=== PATIENT | male | born 1965 | race Caucasian/White ===

== ENCOUNTER 2023-07-02 12:30 | Emergency (ER) | payer OTHER ==
[~2023-07-02] VITALS: Ht 180.3 cm; Wt 77.1 kg
[2023-07-02] MEDS ORDERED: Ipratropium Bromide INH 0.02% 0.5 mg/2.5ML Vial INH SCH (13:15)
[2023-07-02] MEDS ORDERED: Albuterol 2.5 MG/3 ML VIAL INH SCH ×2 (13:15→15:10)
[2023-07-02] MEDS ORDERED: MethylPREDNISolone Sod Succ 125 MG Vial IV ONE (13:15)
[2023-07-02 13:20] LABS: BASOPHILS ABSOLUTE AUTO 0.04 K/mm3 (0.00-0.23); BASOPHILS PERCENT AUTO 0 % (0-2); EOSINOPHILS ABSOLUTE AUTO 0.05 K/mm3 (0.00-0.68); EOSINOPHILS PERCENT AUTO 1 % (0-6); Hematocrit 42.7 % (37.0-53.0); Hemoglobin 14.3 g/dL (13.5-17.5); IMMATURE GRAN ABSOLUTE AUTO 0.05 K/mm3 (0.00-0.10); IMMATURE GRAN PERCENT AUTO 1 % (0-1); LYMPHOCYTES ABSOLUTE AUTO 1.88 K/mm3 (0.84-5.20); LYMPHOCYTES PERCENT AUTO 21 % (21-46); MONOCYTES ABSOLUTE AUTO 0.62 K/mm3 (0.16-1.47); MONOCYTES PERCENT AUTO 7 % (4-13); Mean Corpuscular HGB 30.4 pg (26.0-34.0); Mean Corpuscular HGB Conc 33.5 g/dL (31.5-36.5); Mean Corpuscular Volume 91 fL (80-100); Mean Platelet Volume 8.8 fL (9.1-12.4); NEUTROPHILS ABSOLUTE AUTO 6.38 K/mm3 (1.96-9.15); NEUTROPHILS PERCENT AUTO 71 % (41-73); Platelet Count 279 K/mm3 (150-400); RDW Coefficient Variation 11.9 % (11.7-14.2); RDW Standard Deviation 39.8 fL (35.1-46.3); White Blood Cell Count 9.02 K/mm3 (4.00-11.30)
[2023-07-02 13:38] LABS: Albumin, Blood 3.1 g/dL (3.4-5.0); Albumin/Globulin Ratio 0.6 (0.8-1.8); Bilirubin, Total 0.3 mg/dL (0.1-1.0); Bun/Creatinine Ratio 10.4 (12.0-20.0); Calcium, Blood 8.9 mg/dL (8.5-10.1); Creatinine, Blood 0.58 mg/dL (0.60-1.20); Potassium, Blood 4.4 mmol/L (3.5-5.5); Total Protein, Blood 8.1 g/dL (6.4-8.2)
[2023-07-02 13:46] LABS: Influenza A, PCR NEGATIVE (NEGATIVE); Influenza B, PCR NEGATIVE (NEGATIVE); Resp Syncytial Virus, PCR NEGATIVE (NEGATIVE); SARS-Cov-2 (COVID-19) PCR, MMC NEGATIVE (NEGATIVE)
[2023-07-02] MEDS ORDERED: RX Prepack Albuterol 1 PREPACK/6.7 GM INH UD ONE (15:10)
[2023-07-02] MEDS ORDERED: Azithromycin 250 MG Tab PO ONE (15:10)
[2023-07-02] MEDS ORDERED: LORazepam 2 MG/ML 1ML Injection IV ONE (15:10)
[2023-07-02] MEDS ORDERED: AZIT250 PO (16:22)
[2023-07-02] MEDS ORDERED: Prednisone20 MG PO (16:22)
== END 2023-07-02 17:14 | disposition home or self-care (01) ==
LOC: ER 12:30
PROVIDERS: Student in an Organized Health Care Education/Training Program
DX: J18.9 Pneumonia, unspecified organism (principal); J44.9 Chronic obstructive pulmonary disease, unspecified; F17.200 Nicotine dependence, unspecified, uncomplicated
CPT/HCPCS: 0241U; 71046; 80053; 83880; 84484; 85025; 93005; 93010; 94640; 94644; 94664; 96374; 99285-25; A9270; J2930

== ENCOUNTER 2024-04-23 13:14 | Inpatient (IN) | payer OTHER ==
[~2024-04-23] VITALS: Ht 177.8 cm; Wt 64.5 kg
[2024-04-23] VITALS (12 sets, daily range): BP systolic 76–101; BP diastolic 55–75
[~2024-04-23 13:14] MED LIST: AZIT250 PO; Prednisone20 MG PO
[2024-04-23] MEDS ORDERED: Folic Acid 1 MG TAB PO ONE (13:30)
[2024-04-23] MEDS ORDERED: Thiamine HCl 100 MG Tab PO ONE (13:30)
[2024-04-23 13:34] LABS: BASOPHILS ABSOLUTE AUTO 0.04 K/mm3 (0.00-0.23); BASOPHILS PERCENT AUTO 0 % (0-2); EOSINOPHILS ABSOLUTE AUTO 0.02 K/mm3 (0.00-0.68); EOSINOPHILS PERCENT AUTO 0 % (0-6); Hematocrit 32.8 % (37.0-53.0); Hemoglobin 11.8 g/dL (13.5-17.5); IMMATURE GRAN ABSOLUTE AUTO 0.45 K/mm3 (0.00-0.10); IMMATURE GRAN PERCENT AUTO 4 % (0-1); LYMPHOCYTES ABSOLUTE AUTO 1.04 K/mm3 (0.84-5.20); LYMPHOCYTES PERCENT AUTO 8 % (21-46); MONOCYTES ABSOLUTE AUTO 1.14 K/mm3 (0.16-1.47); MONOCYTES PERCENT AUTO 9 % (4-13); Mean Corpuscular HGB 32.3 pg (26.0-34.0); Mean Corpuscular Volume 90 fL (80-100); Mean Platelet Volume 9.7 fL (9.1-12.4); NEUTROPHILS PERCENT AUTO 79 % (41-73); NRBC ABSOLUTE 0.02 K/mm3 (0.00-0.02); NRBC Auto 0.2 /100 WBC (0.0-0.2); Platelet Count 192 K/mm3 (150-400); RDW Coefficient Variation 12.3 % (11.7-14.2); RDW Standard Deviation 39.3 fL (35.1-46.3); Red Blood Cell Count 3.65 M/mm3 (4.30-5.90); White Blood Cell Count 12.69 K/mm3 (4.00-11.30)
[2024-04-23] MEDS ORDERED: ESCI10 PO (13:38)
[2024-04-23] MEDS ORDERED: Prinivil10 MG PO (13:38)
[2024-04-23] MEDS ORDERED: HYDHCL25 PO (13:38)
[2024-04-23] MEDS ORDERED: STIOLTO RESPIMAT4 G1 INH (13:39)
[2024-04-23] MEDS ORDERED: PROAIR DIGIHAL90 MCG INH (13:40)
[2024-04-23] MEDS ORDERED: MIRT15ST PO (13:41)
[2024-04-23] MEDS ORDERED: Naltrexone HCl50 MG PO (13:41)
[2024-04-23 14:15] LABS: Albumin, Blood 2.2 g/dL (3.4-5.0); Albumin/Globulin Ratio 0.5 (0.8-1.8); Bilirubin, Total 1.1 mg/dL (0.1-1.0); Bun/Creatinine Ratio 18.6 (12.0-20.0); Calcium, Blood 8.6 mg/dL (8.5-10.1); Creatinine, Blood 0.64 mg/dL (0.60-1.20); Globulin, Blood 4.8 g/dL (2.2-4.0); Potassium, Blood 3.2 mmol/L (3.5-5.5)
[2024-04-23] MEDS ORDERED: NS 1,000 ML IV SCH (14:30)
[2024-04-23] MEDS ORDERED: Ampicillin Sod/Sulbactam Sod 3 GM in NS 100 ML IV ONE (14:35)
[2024-04-23] MEDS ORDERED: Azithromycin 500 MG in NS 250 ML IV ONE (14:35)
[2024-04-23] MEDS ORDERED: Ondansetron HCl 2 MG / ML 2ML Vial IV ONE (14:45)
[2024-04-23] MEDS ORDERED: LORazepam 2 MG/ML 1ML Injection IV ONE (15:35)
[2024-04-23] MEDS ORDERED: Lactated Ringer's 1,000 ML IV ONE ×2 (16:14→16:20)
[2024-04-23] MEDS ORDERED: LORazepam 2 MG/ML 1ML Injection IV PRN ×2 (16:45→16:50)
[2024-04-23] MEDS ORDERED: ChlordiazePOXIDE 25 MG Cap PO PRN ×2 (16:45→16:50)
[2024-04-23] MEDS ORDERED: FLU VACC TS2024-25(6MOS UP)/PF 45 MCG/0.5 ML SYRINGE IM SCH (16:45)
[2024-04-23] MEDS ORDERED: Potassium Chl 20MEQ/Water100ML 100 ML IV SCH (16:50)
[2024-04-23] MEDS ORDERED: Hydrocortisone Sod Succinate 250 MG Vial IV SCH (17:00)
[2024-04-23] MEDS ORDERED: Folic Acid 1 MG in NS 50 ML IV SCH (17:00)
[2024-04-23] MEDS ORDERED: Hydrocortisone Sod Succinate 100 MG Vial IV SCH (17:02)
[2024-04-23] MEDS ORDERED: Thiamine HCl 100 MG in NS 50 ML IV SCH (18:00)
[2024-04-23] MEDS ORDERED: NS 250 ML IV PRN (18:10)
[2024-04-23 19:07] LABS: Base Excess Venous 3.6 mmol/L; Bicarbonate Venous 26.7 mmol/L (24.0-30.0); pH Blood Venous 7.42 (7.34-7.37)
[2024-04-23 19:14] LABS: BASOPHILS ABSOLUTE AUTO 0.02 K/mm3 (0.00-0.23); BASOPHILS PERCENT AUTO 0 % (0-2); EOSINOPHILS ABSOLUTE AUTO 0.01 K/mm3 (0.00-0.68); EOSINOPHILS PERCENT AUTO 0 % (0-6); Hematocrit 30.2 % (37.0-53.0); Hemoglobin 10.7 g/dL (13.5-17.5); IMMATURE GRAN ABSOLUTE AUTO 0.19 K/mm3 (0.00-0.10); IMMATURE GRAN PERCENT AUTO 3 % (0-1); LYMPHOCYTES PERCENT AUTO 16 % (21-46); MONOCYTES ABSOLUTE AUTO 0.66 K/mm3 (0.16-1.47); MONOCYTES PERCENT AUTO 9 % (4-13); Mean Corpuscular HGB 32.2 pg (26.0-34.0); Mean Corpuscular HGB Conc 35.4 g/dL (31.5-36.5); Mean Corpuscular Volume 91 fL (80-100); Mean Platelet Volume 9.1 fL (9.1-12.4); NEUTROPHILS ABSOLUTE AUTO 5.49 K/mm3 (1.96-9.15); NEUTROPHILS PERCENT AUTO 73 % (41-73); Platelet Count 154 K/mm3 (150-400); RDW Coefficient Variation 12.3 % (11.7-14.2); RDW Standard Deviation 40.2 fL (35.1-46.3); Red Blood Cell Count 3.32 M/mm3 (4.30-5.90); White Blood Cell Count 7.57 K/mm3 (4.00-11.30)
[2024-04-23 19:31] LABS: International Normalized Ratio 1.02; Prothrombin Time Results 10.9 Sec (9.7-11.5)
[2024-04-23 19:45] LABS: Free Thyroxine 1.01 ng/dL (0.70-1.60); Magnesium, Blood 1.9 mg/dL (1.6-2.4)
[2024-04-23 19:48] LABS: Albumin, Blood 1.9 g/dL (3.4-5.0); Anion Gap 14 mmol/L (3-11); Blood Urea Nitrogen 8 mg/dL (8-24); CO2, Blood 28 mmol/L (21-32); Calcium, Blood 8.1 mg/dL (8.5-10.1); Chloride, Blood 87 mmol/L (98-108); Glomerular Filtration Rate 119 (60-); Glucose, Blood 76 mg/dL (70-99); Phosphorus, Blood 2.4 mg/dL (2.5-4.9); Potassium, Blood 2.6 mmol/L (3.5-5.5); Sodium, Blood 126 mmol/L (136-145)
[2024-04-23] MEDS ORDERED: Ampicillin Sod/Sulbactam Sod 3 GM in NS 100 ML IV SCH (20:00)
[2024-04-23 21:51] LABS: Osmolality, Serum 264 mos/KG (275-300)
--- NOTE | 2024-04-23 23:21 | NUR ---
WOUND. PT HAS R HIP OPEN WOUND. CIRCULAR, PINK BASE, SMALL AMOUNT OF GRANULATION, NO ODOR. CAME IN WITH BANDAID OVER THE SITE. CLEANSED WITH NORMAL SALINE AND COVERED WITH POLYMEM CLOTH STRIP AND TEGADERM FOR STABILITY. PRESENT ON ADMISSION, PHOTOS TAKEN. PT HAS PURPLE/MAROON BRUISING OVER ENTIRE BACK. SOFT TO TOUCH, NO PAIN WITH PALPATION, FLAT. SKIN WARM C/D/I.
[2024-04-24] VITALS (33 sets, daily range): BP systolic 67–129; BP diastolic 51–94
[2024-04-24] MEDS ORDERED: Potassium Chl 20MEQ/Water100ML 100 ML IV SCH (03:00)
[2024-04-24 03:36] LABS: BASOPHILS ABSOLUTE AUTO 0.01 K/mm3 (0.00-0.23); BASOPHILS PERCENT AUTO 0 % (0-2); EOSINOPHILS PERCENT AUTO 0 % (0-6); Hematocrit 27.1 % (37.0-53.0); Hemoglobin 9.5 g/dL (13.5-17.5); IMMATURE GRAN ABSOLUTE AUTO 0.16 K/mm3 (0.00-0.10); IMMATURE GRAN PERCENT AUTO 3 % (0-1); LYMPHOCYTES ABSOLUTE AUTO 0.52 K/mm3 (0.84-5.20); LYMPHOCYTES PERCENT AUTO 9 % (21-46); MONOCYTES ABSOLUTE AUTO 0.42 K/mm3 (0.16-1.47); MONOCYTES PERCENT AUTO 7 % (4-13); Mean Corpuscular HGB 32.1 pg (26.0-34.0); Mean Corpuscular HGB Conc 35.1 g/dL (31.5-36.5); Mean Corpuscular Volume 92 fL (80-100); Mean Platelet Volume 9.1 fL (9.1-12.4); NEUTROPHILS ABSOLUTE AUTO 4.77 K/mm3 (1.96-9.15); NEUTROPHILS PERCENT AUTO 81 % (41-73); Platelet Count 147 K/mm3 (150-400); RDW Coefficient Variation 12.3 % (11.7-14.2); RDW Standard Deviation 40.2 fL (35.1-46.3); Red Blood Cell Count 2.96 M/mm3 (4.30-5.90); White Blood Cell Count 5.88 K/mm3 (4.00-11.30)
[2024-04-24 03:55] LABS: Albumin, Blood 1.7 g/dL (3.4-5.0); Albumin/Globulin Ratio 0.5 (0.8-1.8); Bilirubin, Total 0.7 mg/dL (0.1-1.0); Bun/Creatinine Ratio 15.2 (12.0-20.0); Calcium, Blood 8.1 mg/dL (8.5-10.1); Creatinine, Blood 0.46 mg/dL (0.60-1.20); Globulin, Blood 3.6 g/dL (2.2-4.0); Potassium, Blood 3.1 mmol/L (3.5-5.5); Total Protein, Blood 5.3 g/dL (6.4-8.2)
[2024-04-24] MEDS ORDERED: Enoxaparin 40 MG/0.4 ML SYR SC SCH (09:00)
[2024-04-24] MEDS ORDERED: Azithromycin 500 MG in NS 250 ML IV SCH (09:00)
[2024-04-24] MEDS ORDERED: Thiamine HCl 100 MG in NS 50 ML IV SCH (09:00)
[2024-04-24] MEDS ORDERED: Nicotine 21 MG PATCH TOP SCH (09:00)
[2024-04-24] MEDS ORDERED: Folic Acid 1 MG in NS 50 ML IV SCH (09:00)
--- NOTE | 2024-04-24 10:55 | NUR ---
PT IS ALERT AND ORIENTED, ANSWERS ALL THE QUESTIONS. PT STATES HE IS INDEPENDENT AT HOME, HE IS VERY WEAK, HE HAD LARGE AMOUNT OF FLAKY DIRTY CONTENTS BETWEEN HIS TOES, HAS BRUISE OVER LEFT FLANK, BILATERAL HIPS ABOVE COCCYX, SKIN TEAR OVER BONY SPINE. SHOULDERS TENDER TO TOUCH, CRIES OUT IN PAIN WITH ANY MOVEMENT OF EXTREMITIES OR TOUCH. RIGHT HIP WITH DIVOT TO THE AREA JUST OVER THE BONY PROMINENCE. PT STATES IT IS HEALING. ASKED HOW HE IS MANAGING AT HOME ALONE, HE REPLIES, "HOW DO YOU THINK?". FAMILY IN THE ROOM. SISTER ANSWERS ALL THE QUESTIONS, POLITELY ASKED TO NOT ANSWER QUESTIONS DIRECTED AT THE PATIENT, WE NEED TO ASSESS HIS MENTATION AND COGNITIVE FUNCTION.
--- NOTE | 2024-04-24 15:52 | NUR ---
Pt. is sitting up in a chair and welcomes my visit. Pt. is pleasant but responds slowly to questions. Facilitate a life review and listen with interest and empathy. Pt. displayed some evidence of impairment as he struggled to remember and verbalize some words and thoughts. Prayed with the Pt. Pt. verbalized graitiude for the spiritual care visit and welcomed this document reviewer to return.
--- NOTE | 2024-04-24 16:18 | NUR ---
REPORT GIVEN TO JOANN Mcdaniel RN FOR ROOM 340. PT TAKEN TO ROOM BY WHEELCHAIR.
[2024-04-24] MEDS ORDERED: LORazepam 1 MG Tab PO PRN (16:50)
[2024-04-24] MEDS ORDERED: Benzonatate 100 MG Cap PO PRN (22:00)
[2024-04-24] MEDS ORDERED: Acetaminophen 325 MG TABLET PO PRN (22:00)
--- NOTE | 2024-04-24 22:22 | NUR ---
NEW T-ORDERS RECEIVED FROM THE ON-CALL HOSPITALIST LION: - TYLENOL 650MG PO Q6PRN - TESSALON PEARLS 100MG PO Q6HRS PRN. ENTERED TO [facility], SEE EMAR. NO ADDITIONAL NEW ORDERS AT THIS TIME.
[2024-04-25 03:13] VITALS: BP 124/92
--- NOTE | 2024-04-25 03:26 | NUR ---
SHIFT SUMMARY PT IS A&O X2-3, SELF, PERSON, AND PLACE. SLOW RESPONSES, SLURRED SPEECH. NO SIDED FACIAL DROOP NOTED. UPPER AND LOWER EXTREMITIES WEAK BILATERALLY. PT IS 2-PERSON ASSIST. STAYED IN BED AND REPOSITIONED Q2HRS. PT IS MOSTLY COOPERATIVE WITH CARE. CIWA SCORES 4&6 DURING THIS SHIFT. PO 1MG PRN ATIVAN ADMINISTERED FOR ANXIETY AT HS. PT HAS MALE PUREWICK, PULLED IT OFF, UNABLE TO VOID FROM 1900-030. BLADDER SCAN 467MLS. ATTENDS IN PLACE. PT C/O COUGH, LUNGS DIMINISHED UPPER LOBES, FINE CRACKLES LL'S PER AUSCULTATION. HX OF PNEUMONIA 2WKS AGO. 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 TESSALON PEARLS PRN FOR PRODUCTIVE OCCASIONAL COUGH, AND TYLENOL PRN PO ADMINISTERED AT HS. PT C/O 10/10 BODY ACHES D/T HX OF MULTIPLE FALLS RECENTLY. PT'S LE'S AND UE'S BRUISED T/O. NO ACUTE EVENTS DURING THIS SHIFT. BED AT THE LOWEST POSITION, CALL LIGHT W/I REACH. WILL RE-SCAN BLADDER BEFORE DAY SHIFT, AND WILL CONTACT THE PROVIDER FOR STRAIGHT CATH IF NOT VOIDING BEFORE 0600.
[2024-04-25 05:33] LABS: BASOPHILS ABSOLUTE AUTO 0.01 K/mm3 (0.00-0.23); BASOPHILS PERCENT AUTO 0 % (0-2); EOSINOPHILS PERCENT AUTO 0 % (0-6); Hematocrit 29.2 % (37.0-53.0); Hemoglobin 9.7 g/dL (13.5-17.5); IMMATURE GRAN ABSOLUTE AUTO 0.24 K/mm3 (0.00-0.10); IMMATURE GRAN PERCENT AUTO 3 % (0-1); LYMPHOCYTES ABSOLUTE AUTO 1.17 K/mm3 (0.84-5.20); LYMPHOCYTES PERCENT AUTO 15 % (21-46); MONOCYTES ABSOLUTE AUTO 0.72 K/mm3 (0.16-1.47); MONOCYTES PERCENT AUTO 9 % (4-13); Mean Corpuscular HGB 31.5 pg (26.0-34.0); Mean Corpuscular HGB Conc 33.2 g/dL (31.5-36.5); Mean Corpuscular Volume 95 fL (80-100); Mean Platelet Volume 9.2 fL (9.1-12.4); NEUTROPHILS ABSOLUTE AUTO 5.91 K/mm3 (1.96-9.15); NEUTROPHILS PERCENT AUTO 74 % (41-73); NRBC ABSOLUTE 0.02 K/mm3 (0.00-0.02); NRBC Auto 0.2 /100 WBC (0.0-0.2); Platelet Count 173 K/mm3 (150-400); RDW Coefficient Variation 12.6 % (11.7-14.2); RDW Standard Deviation 43.1 fL (35.1-46.3); Red Blood Cell Count 3.08 M/mm3 (4.30-5.90); White Blood Cell Count 8.05 K/mm3 (4.00-11.30)
[2024-04-25 06:06] LABS: Albumin/Globulin Ratio 0.5 (0.8-1.8); Bilirubin, Total 0.6 mg/dL (0.1-1.0); Bun/Creatinine Ratio 12.2 (12.0-20.0); Calcium, Blood 8.7 mg/dL (8.5-10.1); Creatinine, Blood 0.41 mg/dL (0.60-1.20); Globulin, Blood 3.7 g/dL (2.2-4.0); Potassium, Blood 2.8 mmol/L (3.5-5.5); Total Protein, Blood 5.7 g/dL (6.4-8.2)
[2024-04-25 08:00] VITALS: BP 107/79
[2024-04-25] MEDS ORDERED: Potassium Chl 20MEQ/Water100ML 100 ML IV SCH (09:00)
[2024-04-25 15:42] VITALS: BP 121/85
[2024-04-25] MEDS ORDERED: Potassium Chloride 20 MEQ/15 ML UDC PO ONE (16:40)
[2024-04-25] MEDS ORDERED: Pantoprazole Sodium 40 MG Tab PO SCH (19:00)
--- NOTE | 2024-04-25 19:10 | NUR ---
SHIFT SUMMARY PATIENT A/OX3, ABLE TO MAKE NEEDS KNOWN. CONFUSED INTERMITTENTLY, BASELINE PER FAMILY. SISTER AT BEDSIDE MOST OF SHIFT TODAY. 1 PERSON ASSIST, REFUSED PHYSICAL AND OCCUPATION THERAPY TODAY BUT IS ABLE TO TRANSFER TO RECLINER AND BEDSIDE COMMODE WITH NURSE ASSIST. PIV TO R AC REMOVED DUE TO LEAKING. PATIENT COMPLAINING OF LEFT WRIST PAIN, TYLENOL GIVEN PER JUL. PATIENT ALSO REQUESTED MEDS FOR HEART BURN THIS AFTERNOON, MD NOTIFED AND PRILOSEC ADMINISTERED. HIGHEST CIWA SCORE TODAY 6, ATIVAN ADMINISTERED PER MAR THIS AFTERNOON. PATIENT CONTINUES WITH WEAK PRODUCTIVE COUGH WIHT BROWN SPUTUM. NO OTHER CONCERNS AT THIS TIME.
[2024-04-25 20:12] VITALS: BP 146/108
[2024-04-25] MEDS ORDERED: Calcium Carbonate 500 MG Tab Chew PO PRN (20:40)
[2024-04-26 02:55] VITALS: BP 133/81
--- NOTE | 2024-04-26 04:25 | NUR ---
SHIFT SUMMARY PT ALERT ORIENTED X 3 WITH FORGETFULNESS. HE URINATED 300 IN THE URINAL AND STILL HAD 300 ON THE BLADDER SCAN. C/O INDIGESTION MEDICATED WITH TUMS WITH GOOD RELIEF. NO SIGNS OF WITHDRAWAL. HAS A OPEN AREA TO HIS RT HIP I CHANGED THE DRESSING TO THE AREA. REMAINS WITH RT HAND WEAKNESS AND RT SIDED FACIAL DROOP. HE HAD A INCREASED BP AT START OF THE SHIFT AT 146/108 BUT BETTER AT THE END. REMAINS ON RA. CONTINUES ON UNASYN Q6HR AND ZITHROMAX QDAY FOR PNEUMONIA. REMAINS WITH A PRODUCTIVE COUGH WITH THICK WHITE SPUTUM. RESTING IN BED AT THIS TIME WITH CALL LIGHT IN REACH
[2024-04-26 06:35] LABS: Anion Gap 10 mmol/L (3-11); Blood Urea Nitrogen 5 mg/dL (8-24); Bun/Creatinine Ratio 11.5 (12.0-20.0); CO2, Blood 30 mmol/L (21-32); Calcium, Blood 8.8 mg/dL (8.5-10.1); Chloride, Blood 99 mmol/L (98-108); Creatinine, Blood 0.44 mg/dL (0.60-1.20); Ferritin, Serum 748 ng/mL (26-388); Glomerular Filtration Rate 124 (60-); Glucose, Blood 90 mg/dL (70-99); Iron Serum 42 ug/dL (65-175); Magnesium, Blood 1.9 mg/dL (1.6-2.4); Percent Saturation 27.8 % (20.0-50.0); Phosphorus, Blood 1.3 mg/dL (2.5-4.9); Potassium, Blood 2.8 mmol/L (3.5-5.5); Sodium, Blood 136 mmol/L (136-145); Total Iron Binding Capacity 151 ug/dL (250-450)
[2024-04-26 07:23] VITALS: BP 133/100
[2024-04-26] MEDS ORDERED: Folic Acid 1 MG TAB PO SCH (09:00)
[2024-04-26] MEDS ORDERED: Thiamine HCl 100 MG Tab PO SCH (09:00)
[2024-04-26] MEDS ORDERED: Azithromycin 250 MG Tab PO SCH (09:00)
[2024-04-26] MEDS ORDERED: Potassium Phosphate Dibasic 30 MM in Dextrose 5% 500 ML IV STA (09:09)
[2024-04-26] MEDS ORDERED: Ipratropium/Albuterol SulF 2.5-0.5MG/3 ML Amp INH SCH (09:15)
[2024-04-26] MEDS ORDERED: Albuterol HFA200 ACT/6.7 GM INH INH PRN (09:15)
[2024-04-26] MEDS ORDERED: Potassium Chloride 20 MEQ TabCR PO ONE (10:00)
[2024-04-26] MEDS ORDERED: Lisinopril 10 MG Tab PO SCH (12:00)
[2024-04-26 12:10] VITALS: BP 118/81
[2024-04-26] MEDS ORDERED: Lactobacil 2-S.Thermo-Bifido 1 1 Cap PO SCH (18:00)
--- NOTE | 2024-04-26 18:41 | NUR ---
SHIFT SUMMARY: PT IS A/O X 3, ONE ASSIST TO BSC WITH GB/FWW. PT HAS BEEN WITHDRAWN TODAY. SLOW TO RESPOND. VERY POOR APPETITE. HAS HAD 5 DARK GREEN JELLY LIKE BM'S. HE HAS BEEN CONTINENT/INCONTINENT THROUGHOUT THE DAY. PT DENIES PAIN THROUGH THE DAY. DECLINED PT/OT STATING HE DID NOT SLEEP WELL LAST NIGHT AND HE IS TOO TIRED. PT COUGHING UP WHITE PHLEGM. DENIES NAUSEA. FAMILY PRESENT THROUGHOUT THE DAY. CARE MANAGEMENT WORKING ON PLACEMENT OR CAREGIVING PLAN IN THE HOME. PT AWARE HE HAS ORDER FOR BARRIUM SWALLOW EVAL.
[2024-04-26 19:23] VITALS: BP 119/87
[2024-04-26] MEDS ORDERED: Banana Flakes/Tos 1 EA Powder Pack PO SCH (20:00)
[2024-04-26] MEDS ORDERED: Mirtazapine 15 MG SoluTab PO SCH (21:00)
[2024-04-26] MEDS ORDERED: Amoxicillin/Clavulanate K 875 MG Tab PO SCH (21:00)
[2024-04-27 03:08] VITALS: BP 133/104
--- NOTE | 2024-04-27 03:41 | NUR ---
SHIFT SUMMARY PT ALERT ORIENTED X 3 DOESNT USE HIS CALL LIGHT SO WE GO IN AND CHECK ON HIM FREQUENTLY. HE WILL CALL OUT AT TIMES. CONTINUES WITH A PRODUCTIVE COUGH WITH THICK WHITE SPUTUM. REMAINS ON AUGMENTIN AND ZITHROMAX FOR PNEUMONIA. CONTINUES TO BE SLIGHTLY WEAKER ON HIS RT ARM. NO FACIAL DROOPING AT THIS TIME. HE SLEPT WELL MOST OF THE NIGHT. SAT UP ON THE SIDE OF THE BED AND USED THE URINAL. NO S/S ETOH WITHDRAWLS. VSS ON RA SATTING AT 97%. HES DUE TO HAVE A BARIUM SWALLOW THIS AM. RESTING IN BED AT THIS TIME WITH CALL LIGHT IN REACH
[2024-04-27 06:26] LABS: Albumin, Blood 2.1 g/dL (3.4-5.0); Anion Gap 9 mmol/L (3-11); Blood Urea Nitrogen 3 mg/dL (8-24); CO2, Blood 30 mmol/L (21-32); Calcium, Blood 8.5 mg/dL (8.5-10.1); Chloride, Blood 100 mmol/L (98-108); Glomerular Filtration Rate 119 (60-); Glucose, Blood 95 mg/dL (70-99); Phosphorus, Blood 2.5 mg/dL (2.5-4.9); Potassium, Blood 2.8 mmol/L (3.5-5.5); Sodium, Blood 136 mmol/L (136-145)
[2024-04-27 07:24] VITALS: BP 106/79
[2024-04-27] MEDS ORDERED: Potassium Chl 20MEQ/Water100ML 100 ML IV SCH (08:10)
[2024-04-27] MEDS ORDERED: Naltrexone HCl 50 MG Tab PO SCH (09:00)
[2024-04-27] MEDS ORDERED: Lisinopril 10 MG Tab PO SCH (09:00)
[2024-04-27] MEDS ORDERED: Potassium Chloride 20 MEQ TabCR PO ONE (09:00)
[2024-04-27] MEDS ORDERED: Citalopram Hydrobromide 20 MG Tab PO SCH (09:00)
[2024-04-27] MEDS ORDERED: HyDROXyzine HCl 10 MG Tab PO PRN (10:45)
--- NOTE | 2024-04-27 15:50 | NUR ---
Long visit made today with pt's sister Sadia. She stated she believed the patient was ready for comfort care, given the fact he is not eating well, has lost 40lbs in the past few months, and hasn't been willing or even able to work with therapy. When I went to the room to speak directly to her and the patient, the patient was adamant that he didn't want to "give up." He indicated he is now willing to work with PT and OT both, before stating, "Now can I take a nap?" I did review with pt and his sister that until now, pt had declined many therapy appointments, or would only do the bare minimum. They both indicated that will change.
--- NOTE | 2024-04-27 17:44 | NUR ---
CALLED DR WITH RESULTS K+ LAB. ORDERS FOR 20 MEQ GIVEN
[2024-04-27] MEDS ORDERED: Potassium Chloride 10 Meq Tablet SA PO ONE (17:45)
[2024-04-27 19:39] VITALS: BP 97/71
[2024-04-27 20:09] VITALS: BP 102/72
[2024-04-28] MEDS ORDERED: VARENICLINE TA1 EACH PO (03:33)
[2024-04-28 03:39] VITALS: BP 135/94
--- NOTE | 2024-04-28 03:45 | NUR ---
SHIFT SUMMARY: PT IS A PLEASANT 58 YO FULL CODE ADMITTED FOR CP THAT HAS BEEN RESOLVED. PT HAS PNEUMONIA AND SECONDARY SEPSIS. PT IS A 1 ASSIST TO THE BSC W/FWW. PT HAS A NEW ORDER TO HAVE MEDS CRUSHED IN APPLESAUCE AFTER SWALLOW EVAL. PT DOES NOT LIKE THE PILLS CRUSHED IN APPLESAUCE. PT HAS HAD RUNNY YELLOW BM'S THIS SHIFT. PT HAS A MEPILEX ON SPINE AND WEARS A NICOTINE PATCH. PT HAD SOME LOW BP'S AT THE BEGINNING OF THE SHIFT THAT ARE NOW RESOLVED AND HE WAS NEVER SYMPTOMATIC. PT IS ON TELE SR IN THE 90'S WITH BOUTS OF SVT A COUPLE TIMES IN THE NIGHT THAT LASTED ONLY ABOUT 9 SECONDS AND REACHED THE 180'S. PT HAS A HIST OF FALLS IN THE HOME AND BED ALARM IS SET FOR SAFETY. PT HAS MULTIPLE BRUISES IN DIFFERENT HEALING STAGES ALL OVER HIS BODY. PT DID NOT SHOW ANY SYMPTOMS OF ALCOHOL WITHDRAWL THIS SHIFT. PT REFUSED ALL BREATHING TREATMENTS OFFERED AND HAS A WET COUGH AT TIMES. PT IS CURRENTLY ON RA AND USES CALL LIGHT NEEDED.
[2024-04-28 06:03] LABS: Anion Gap 11 mmol/L (3-11); Blood Urea Nitrogen 3 mg/dL (8-24); Bun/Creatinine Ratio 5.5 (12.0-20.0); CO2, Blood 27 mmol/L (21-32); Calcium, Blood 8.3 mg/dL (8.5-10.1); Chloride, Blood 107 mmol/L (98-108); Creatinine, Blood 0.54 mg/dL (0.60-1.20); Glomerular Filtration Rate 116 (60-); Glucose, Blood 88 mg/dL (70-99); Phosphorus, Blood 2.6 mg/dL (2.5-4.9); Potassium, Blood 3.7 mmol/L (3.5-5.5); Sodium, Blood 141 mmol/L (136-145)
--- NOTE | 2024-04-28 07:18 | NUR ---
REPORT RECEIVED FROM KAYLEEN JORDAN. SAMANTHA TIAN TO COMPLETE HEAD-TO-TOE ASSESSMENT. PATIENT COMFORTABLE IN BED. DENIES PAIN AT THIS TIME. CALL LIGHT WITHIN REACH.
[2024-04-28 07:23] VITALS: BP 135/90
--- NOTE | 2024-04-28 16:37 | NUR ---
SHIFT SUMMARY A&OX4, COOPERATIVE WITH CARE. NO ACUTE EVENTS THIS SHIFT. DENIES CP/PRESSURE, HEADACHE, DIZZINESS, OR SOB. COMPLAINED OF LACK OF SLEEP AND WANTING A SLEEP AID OF SOME SORT. ADMINISTERED ATARAX TWICE AND PATIENT WAS ABLE TO NOD OFF A COUPLE TIMES. DENIES PAIN, BUT WINCES WITH CARE AND REPOSITIONING. CONTINUES TO HAVE DIARRHEA T/O SHIFT; WATERY, YELLOW/BROWN STOOL WITHOUT STRONG SMELL. PROVIDER DID NOT WANT A SAMPLE SENT OFF. DECREASED APPETITE. ENCOURAGED PATIENT TO TRY EATING EVEN IF HE DOESN'T FEEL LIKE IT. FAMILY AT BEDSIDE T/O SHIFT. BED IN THE LOWEST POSITION. CALL LIGHT WITHIN REACH.
[2024-04-28 16:55] VITALS: BP 124/89
[2024-04-28 19:43] VITALS: BP 125/85
[2024-04-29 02:55] VITALS: BP 138/89
--- NOTE | 2024-04-29 03:07 | NUR ---
SHIFT SUMMARY PT AOX4, COOPERATIVE, ABLE TO MAKE NEEDS KNOWN. PT REMAINED IN BED FOR PERIOD OF SHIFT. AROUND MIDNIGHT, TELE REPORT INFORMED RN OF 2 RUNS OF SVT, FIRST WAS 3 BEAT RUN, 20 MINS LATER 7 BEAT RUN SVT. NO MORE RUNS AFTER THAT. PT TOLERATED MEDICATIONS APPROPRIATELY. GOT OUT OF BED ONCE TO USE COMMODE. DID EXPRESS PAIN IN FEET AND WHEN FLUSHING IV. BED IN LOWEST POSITION, CALL LIGHT WITHIN REACH.
[2024-04-29] MEDS ORDERED: Ipratropium/Albuterol SulF 2.5-0.5MG/3 ML Amp INH SCH (07:00)
[2024-04-29 08:02] VITALS: BP 120/92
[2024-04-29] MEDS ORDERED: Metoprolol Succinate 25 MG TABCR PO SCH (09:00)
[2024-04-29 09:05] LABS: Albumin, Blood 2.3 g/dL (3.4-5.0); Albumin/Globulin Ratio 0.6 (0.8-1.8); Bilirubin, Total 0.8 mg/dL (0.1-1.0); Bun/Creatinine Ratio 7.5 (12.0-20.0); Creatinine, Blood 0.53 mg/dL (0.60-1.20); Globulin, Blood 4.1 g/dL (2.2-4.0); Phosphorus, Blood 3.2 mg/dL (2.5-4.9); Potassium, Blood 3.5 mmol/L (3.5-5.5); Total Protein, Blood 6.4 g/dL (6.4-8.2)
[2024-04-29] MEDS ORDERED: Potassium Chloride 20 MEQ/15 ML UDC PO STA (09:36)
[2024-04-29 16:35] VITALS: BP 112/79
--- NOTE | 2024-04-29 17:10 | NUR ---
PATIENT ALERT AND ORIENTED, VITALS STABLE WITH TACHYCARDIA, ROOM AIR. 1 PERSON ASSIST TO BSC FOR ONE LOOSE BM. VERY LITTLE PO INTAKE. EXPRESSED PAIN WHEN FEET ARE TOUCHED OR WHEN HE IS REPOSITIONED. ON TELE WITH RATE FROM 104-125. COOPERATIVE WITH CARE, CALL LIGHT IN REACH. SISTER AT BEDSIDE FOR MOST OF SHIFT.
[2024-04-29 19:54] VITALS: BP 110/84
[2024-04-30 03:19] VITALS: BP 142/95
--- NOTE | 2024-04-30 03:44 | NUR ---
PROVIDER RELATIONS SPECIALIST SUMMARY BP ELEVATED, OTHERWISE VSS. ASYMPTOMATIC. DENIES PAIN AND DISCOMFORT WHEN ASKED. MED TELE - OCCASIONAL RUNS OF V-TACH. HAD REQUESTED AND RECEIVED ATARAX AT HS FOR SLEEP, MED WAS EFFECTIVE. PT HAS BEEN RESTING QUIETLY WITH OCCASIONAL INTERRUPTIONS OF COUGH. EACH TIME PT WAS COUGHING, AND WAS CHECKED ON, VOICED WAS OK, AND SMILED. HOB ELEVATED FOR RESP COMFORT. CALL LIGHT IN REACH, RAILS UP X 2 AND BED IN LOW POSITION FOR SAFETY. WILL CONT TO MONITOR.
[2024-04-30 07:32] VITALS: BP 109/72
[2024-04-30] MEDS ORDERED: Tiotropium Bromide 2.5 MCG/ACT MIST INHAL (10 ACT/4 GM) INH SCH (08:15)
--- NOTE | 2024-04-30 10:02 | NUR ---
PATIENT'S SISTER AUBREY REPORTED THAT SHE BROUGHT IN A THC EDIBLE AND GAVE THE PATIENT A TINY PIECE. PATIENT'S APPETITE WAS NOTED TO BE BETTER AND HE CONSUMED ABOUT 10% OF HIS BREAKFAST. NOTIFIED PROVIDER. WILL CONTINUE TO ENCOURAGE PATIENT TO EAT AND OFFER ENSURES.
[2024-04-30] MEDS ORDERED: Misc. Inhaler INH SCH (11:05)
[2024-04-30 15:35] VITALS: BP 97/64
--- NOTE | 2024-04-30 16:56 | NUR ---
SHIFT SUMMARY A&OX4, COOPERATIVE, NO ACUTE EVENTS THIS SHIFT. PATIENT PREFERS PILLS CRUSHED AND ADDED TO WATER, NOT APPLESAUCE. DENIES CP/PRESSURE, HEADACHE, DIZZINESS, OR SOB. ROOM AIR. ABLE TO TRANSFER FROM BED TO CHAIR SBA/1PA. DENIES PAIN, BUT WINCES WITH REPOSITIONING AND SOME CARE. ATARAX ADMINISTERED 2 TIMES. FAMILY AT BEDSIDE T/O MOST OF SHIFT. CURRENTLY WATCHING TV. BED IN THE LOWEST POSITION. CALL LIGHT WITHIN REACH.
[2024-04-30 19:12] VITALS: BP 108/70
[2024-05-01 05:33] VITALS: BP 124/92
--- NOTE | 2024-05-01 06:12 | NUR ---
Shift Summary No acute changes. Pt is able to ambulate with assistance and a FWW to the BR. He is AOx4 pleasant and cooperative. No c/o of chest pain or discomfort, no nausea or dizzyness.
[2024-05-01 07:22] VITALS: BP 128/85
[2024-05-01 16:18] VITALS: BP 114/83
--- NOTE | 2024-05-01 17:39 | NUR ---
SHIFT SUMMARY: PT AOX4 WITH SOME FORGETGFULLNESS AND ANXIETY. WAS BEGRUDGENLY WORKING WITH PT OT TO DO EVALS FOR PLACEMENT. IS A BLE TO MOVE AROUND WELL AND PERFORM ADLS IND BUT INSISTS ON GETTING HELP WHEN HE DOESNT REALLY NEED IT. SLEPT MOST OF THE DAY BECAUSE HE WASNT ABLE TO SLEEP MUCH LAST NIGHT. PT TOLERATING MEDS WELL AND WILL CALL APPROPRIATELY FOR MOST THINGS BUT WILL ATTEMPT TO GET INTO THE CHAIR BY HIMSELF. PT CURRENTLY RESTING IN BED, BED IN LOWEST POSITION, CALL LIGHT IN REACH. CONTINUING CARE.
--- NOTE | 2024-05-01 17:58 | NUR ---
THIS DECONTAMINATOR HAS REVIEWED AND AGREES WITH ALL NOTES AND ASSESSMENTS BY SAMANTHA COVARRUBIAS.
[2024-05-01 20:25] VITALS: BP 109/78
[2024-05-02 03:05] VITALS: BP 115/89
--- NOTE | 2024-05-02 06:22 | NUR ---
Shift Summary No acute changes, no chest pain. Pt awake for most of the night, per report he slept for much of the day yesteday. He has a weak cough and difficulty clearing secretions. He takes his meds crushed in water. AOx4, able to ambulate with FWW.
[2024-05-02 07:34] VITALS: BP 105/75
--- NOTE | 2024-05-02 14:33 | NUR ---
Spiritual Care Visit. Pt. is awake and sitting in a chair when he welcomed my visit. Pt. is pleasant and verbalized that he remembered this metal mold dresser from a previous visit. Pt. displayed jean pierre e evidence of being sluggish, but displayed evidence of being fully engaged and aware. Pt. could articulate and verbalize his anticipated plan of care. Pt. welcomed prayer. Prayed with Pt. Will remain available to the Pt.
[2024-05-02 15:20] VITALS: BP 86/65
--- NOTE | 2024-05-02 17:05 | NUR ---
SHIFT SUMMARY PT AO4, COOPERATIVE, ABLE TO MAKE NEEDS KNOWN. PT REMAINED IN BED FOR SHIFT EXCPET TO WORK WITH THERAPY. NO ACUTE EVENTS TOOK PLACE THIS SHIFT. POSSIBLE DISCHARGE ON TUESDAY. BED IN LOWEST POSITION, ALL LIGHT WITHIN REACH.
[2024-05-02 20:07] VITALS: BP 93/62
[2024-05-03 02:00] VITALS: BP 112/76
--- NOTE | 2024-05-03 05:46 | NUR ---
SHIFT SUMMARY PT A&O X4. BP SOFT LAST EVENING- , IMPROVED THIS AM. PT ASYMPTOMATIC. MEDICATED FOR ANXIETY X1- SEE EMAR. SLEPT INTERMITTENTLY THROUGH THE NIGHT. BED IN LOWEST POSITION, CALL LIGHT WITHIN REACH, SIDE RAILS UP X2.
[2024-05-03 07:40] VITALS: BP 108/77
[2024-05-03 16:19] VITALS: BP 89/69
--- NOTE | 2024-05-03 16:28 | NUR ---
SHIFT SUMMARY PT AO4, COOPERATIVE, ABLE TO MAKE NEEDS KNOWN. PT REFUSED THERAPY AND GETTING OUT OF BED ALL DAY. NO COMPLAINTS OF PAIN. DID USE URINAL ON SIDE OF BED. NO ACUTE EVENTS DURING COURSE OF SHIFT. BED IN LOWEST POSITION, CALL LIGHT WITHIN REACH.
[2024-05-03 19:21] VITALS: BP 111/73
[2024-05-04 02:27] VITALS: BP 108/77
--- NOTE | 2024-05-04 04:35 | NUR ---
SHIFT SUMMARY 58 YR M ADMITTED ON 04/23/24. FULL CODE. NO ACUTE CHANGES THIS SHIFT. PT EASILY TOOK HIS MEDS WHOLE W/ WATER. HE HAS SLEPT FOR THE ENTIRETY OF THIS SHIFT. REPOSITIONED NEEDED FOR COMFORT. NOTHING NEW TO REPORT. BED IN LOW POSITION AND CALL LIGHT IN REACH.
[2024-05-04 07:45] VITALS: BP 114/73
[2024-05-04 17:06] VITALS: BP 91/62
--- NOTE | 2024-05-04 18:01 | NUR ---
SHIFT SUMMARY: PT AOX4 WITH FLAT AFFECT AND WITHDRAWN. PT READY FOR DISCHARGE BEING HELD SO UNTIL THE FAMILY IS READY. PT STARTED TAKING MEDS WHOLE ONE AT A TIME WITHOUT ISSUE. PT WAS ABLE TO AMBULATE TO RESTROOM AND WENT ON A WALK INTO THE HALLWAY BEFORE RETURNING TO BED. PT UNMOTIVATED TO WORK WITH PT OT AND WORK TOWARDS GAINING STRENGTH. CAN BE ANXIOUS REFUSE CARE AT TIMES. PT TOLERATING MEDS WELL AND WILL CALL APPROPRIATELY. PT RESTING IN BED, BED IN LOWEST POSITION AND CALL LIGHT IN REACH. CONTINUING CARE.
[2024-05-04 20:41] VITALS: BP 106/78
[2024-05-05 03:19] VITALS: BP 113/76
--- NOTE | 2024-05-05 04:43 | NUR ---
SHIFT SUMMARY PT ALERT ORIENTED ABLE TO VERBALIZE NEEDS AMBULATES TO BATHROOM WITH SBA. HE GOT UP TO BATHROOM AND HAD A BM. REMAINS ON TELEMETRY AT NSR AT 87. VSS ON RA SATTING AT 98%. NO C/O PAIN THIS SHIFT. SLEPT ON AND OFF MOST OF THE SHIFT. HE HAS NO IV. ONLY HAD ONE TIME OF LOOSE STOOLS. RESTING WELL AT THIS TIME WITH CALL LIGHT IN REACH
[2024-05-05 06:51] LABS: BASOPHILS ABSOLUTE AUTO 0.03 K/mm3 (0.00-0.23); BASOPHILS PERCENT AUTO 1 % (0-2); EOSINOPHILS ABSOLUTE AUTO 0.04 K/mm3 (0.00-0.68); EOSINOPHILS PERCENT AUTO 1 % (0-6); Hematocrit 32.1 % (37.0-53.0); Hemoglobin 10.3 g/dL (13.5-17.5); IMMATURE GRAN ABSOLUTE AUTO 0.03 K/mm3 (0.00-0.10); IMMATURE GRAN PERCENT AUTO 1 % (0-1); LYMPHOCYTES ABSOLUTE AUTO 0.99 K/mm3 (0.84-5.20); LYMPHOCYTES PERCENT AUTO 15 % (21-46); MONOCYTES PERCENT AUTO 8 % (4-13); Mean Corpuscular HGB 31.4 pg (26.0-34.0); Mean Corpuscular HGB Conc 32.1 g/dL (31.5-36.5); Mean Corpuscular Volume 98 fL (80-100); Mean Platelet Volume 9.2 fL (9.1-12.4); NEUTROPHILS ABSOLUTE AUTO 4.87 K/mm3 (1.96-9.15); NEUTROPHILS PERCENT AUTO 75 % (41-73); Platelet Count 226 K/mm3 (150-400); RDW Coefficient Variation 12.9 % (11.7-14.2); RDW Standard Deviation 46.3 fL (35.1-46.3); Red Blood Cell Count 3.28 M/mm3 (4.30-5.90); White Blood Cell Count 6.46 K/mm3 (4.00-11.30)
[2024-05-05 07:17] LABS: Albumin, Blood 1.9 g/dL (3.4-5.0); Albumin/Globulin Ratio 0.5 (0.8-1.8); Bilirubin, Total 0.4 mg/dL (0.1-1.0); Bun/Creatinine Ratio 9.3 (12.0-20.0); Calcium, Blood 8.1 mg/dL (8.5-10.1); Creatinine, Blood 0.54 mg/dL (0.60-1.20); Globulin, Blood 3.6 g/dL (2.2-4.0); Potassium, Blood 2.7 mmol/L (3.5-5.5); Total Protein, Blood 5.5 g/dL (6.4-8.2)
[2024-05-05 07:38] VITALS: BP 104/74
[2024-05-05] MEDS ORDERED: STIOLTO RESPIMAT INH SCH (10:00)
[2024-05-05] MEDS ORDERED: Potassium Chloride 10 Meq Tablet SA PO ONE (13:35)
[2024-05-05] MEDS ORDERED: Potassium Chl 20MEQ/Water100ML 100 ML IV SCH (13:45)
[2024-05-05] MEDS ORDERED: Empagliflozin 10 MG TAB PO SCH (14:00)
[2024-05-05 15:43] VITALS: BP 101/76
--- NOTE | 2024-05-05 16:13 | NUR ---
SHIFT SUMMARY: PATIENT K 2.7 LAB RESULT THIS AM. PATIENT HAS NO IV ACCESS, DECLINING TO HAVE NEW PIV PLACED, EVEN c EDUCATION HE CONTINUES TO DECLINE. PER PATIENT "I'M GOING HOME AND YOU ARE NOT POKING ME ANYMORE, BUT I CAN TAKE THE TABLET." NOTIFIED DR. KURT olmstead THIS ISSUE. DR. HICKS CHANGED TO PO K. PATIENT RECEIVED 40 MEQ PO K THIS SHIFT. PATIENT DENIES CP/PRESSURE, SOB, N/V AND DIZZINESS. PATIENT APPETITE HAS IMPROVED, CONTINENT OF BLADDER, USES URINAL AND AMBULATES TO BATHROOM c SBA/FWW. PATIENT HAS HAD NO BM THIS SHIFT. VITAL SIGNS REVIEWED. CALL LIGHT IN REACH.
[2024-05-05 19:57] VITALS: BP 98/73
[2024-05-05] MEDS ORDERED: Potassium Chloride 10 Meq Tablet SA PO SCH (20:00)
--- NOTE | 2024-05-06 04:25 | NUR ---
SHIFT SUMMARY PATENT HAD NO ACUTE CHANGES. AXOX 3-4 WITH CONFUSION AT TIMES. SBA TO BR. NO IV ACCESS. DENIES CHEST PAIN, SOB, AND N/V. ANXIOUS TO DISCHARGE. VSS/AFEBRILE. WATCHED TV FIRST PART OF SHIFT. CALL LIGHT IN REACH. BED IN LOWEST POSITION. WILL CONTINUE TO MONITOR UNTIL DAY SHIFT NURSE ASSUMES CARE.
[2024-05-06 04:27] VITALS: BP 108/84
--- NOTE | 2024-05-06 05:27 | NUR ---
PATIENT REFUSING MORNING 06:00 MEDS AND LABS. LAB REPORTS WILL TRY LATER. TM
[2024-05-06 07:31] VITALS: BP 109/69
[2024-05-06] MEDS ORDERED: PANT20 PO (15:12)
[2024-05-06] MEDS ORDERED: JARDIANCE10 MG PO (15:13)
[2024-05-06] MEDS ORDERED: B-1100 M1 PO (15:13)
[2024-05-06] MEDS ORDERED: FOLI1 PO (15:14)
[2024-05-06] MEDS ORDERED: METO25ER PO (15:20)
--- NOTE | 2024-05-06 15:34 | NUR ---
SHIFT SUMMARY: PATIENT ANXIOUS TO GO HOME TODAY. PATIENT REFUSED AM LAB DRAWN AND SCHEDULED MEDS PER EMAR. PATIENT MADE PHONE CALL TO NUMEROUS FRIENDS AND FAMILY MEMBER'S REQUESTING TO PICK HIM UP SO HE CAN GO HOME. PATIENT SISTER YAEL CAME AT AROUND 1400 AND AGREED TO TAKE PATIENT HOME WITH HER. NOTIFIED DR. HICKS, DISCHARGE ORDER PLACED. PATIENT DISCHARGE HOME c [facility]. DISCHARGE INSTRUCTIONS PACKET GIVEN TO PATIENT AND SISTER AT BEDSIDE. EDUCATED PATIENT/SISTER REGARDING ADMITTING DX'S OF CP, S/S, TX, NEW RX AND TO F/U c PCP. PATIENT AND SISTER AT BEDSIDE VERBALIZED UNDERSTANDING AND NO FURTHER QUESTIONS. PATIENT LEFT THE ROOM AT 1530 AND TRANSPORTED VIA WHEELCHAIR.
== END 2024-05-06 15:30 | disposition home health service (06) | DRG 871 ==
LOC: ER 13:14 → ICUE 16:43 → MEDS 16:43 → ICUE 16:44 → MEDS 04-24 16:04
PROVIDERS: Emergency Medicine; Internal Medicine; ADMIT Family Medicine
PROC: HZ2ZZZZ Detoxification Services for Substance Abuse Treatment (ICD-10-PCS; principal; 2024-04-23)
PROC: 3E03329 Introduction of Other Anti-infective into Peripheral Vein, Percutaneous Approach (ICD-10-PCS; 2024-04-23)
DX: A41.9 Sepsis, unspecified organism (principal); G92.8 Other toxic encephalopathy; J18.9 Pneumonia, unspecified organism; I50.43 Acute on chronic combined systolic (congestive) and diastolic (congestive) heart failure; J69.0 Pneumonitis due to inhalation of food and vomit; J44.0 Chronic obstructive pulmonary disease with (acute) lower respiratory infection; E87.1 Hypo-osmolality and hyponatremia; I47.19 Other supraventricular tachycardia; R65.20 Severe sepsis without septic shock; F41.9 Anxiety disorder, unspecified; F32.A Depression, unspecified; D63.8 Anemia in other chronic diseases classified elsewhere; J43.9 Emphysema, unspecified; K76.0 Fatty (change of) liver, not elsewhere classified; F10.129 Alcohol abuse with intoxication, unspecified; Y90.2 Blood alcohol level of 40-59 mg/100 ml; E83.39 Other disorders of phosphorus metabolism; R90.82 White matter disease, unspecified; I11.0 Hypertensive heart disease with heart failure; E87.6 Hypokalemia; Z86.73 Personal history of transient ischemic attack (TIA), and cerebral infarction without residual deficits; Z79.82 Long term (current) use of aspirin; Z79.2 Long term (current) use of antibiotics; Z79.899 Other long term (current) drug therapy
CPT/HCPCS: 36415; 70450; 70496; 70498; 71045; 74230; 80053; 80069; 80320; 82140; 82728; 82803; 82947; 83540; 83550; 83605; 83735; 83880; 83930; 83935; 84100; 84132; 84145; 84439; 84443; 84481; 84484; 85025; 85610; 85730; 87040; 87070; 87184; 87205; 87449; 92526; 92610; 92611; 93005; 93010; 93308; 94640; 94664; 94760; 96365-59; 96367; 96375-59; 97110; 97112; 97116; 97129; 97130; 97162; 97165; 97530; 97535; 99285-25; A9270; J0295; J0456; J1650; J1720; J2060; J2405; J3411; J3480; J7030; J7050; J7060; J7120; Q9967